=== PATIENT | female | born 1955 | race Caucasian/White ===

== ENCOUNTER 2022-02-14 05:14 | Day surgery (SDC) | payer MEDICAID ==
[2022-02-08 14:12] LABS: PRE OP HEMOGLOBIN 14.2 g/dL (12.0-16.0)
[2022-02-08 14:14] LABS: BASOPHILS % (AUTO) 0.4 % (0-1); EOSINOPHILS # (AUTO) 0.2 X10'3 (0-0.9); EOSINOPHILS % (AUTO) 1.4 % (0-6); LYMPHOCYTES # (AUTO) 3.1 X10'3 (1.1-4.8); MEAN CORPUSCULAR HEMOGLOBIN 28.4 PG (27.0-31.0); MEAN CORPUSCULAR HGB CONC 33.1 g/dL (33.0-36.5); MEAN CORPUSCULAR VOLUME 85.6 FL (78-98); MONOCYTES % (AUTO) 8.8 % (2-12); NEUTROPHILS # (AUTO) 6.8 X10'3 (1.8-7.7); NEUTROPHILS % (AUTO) 61.4 % (42-75); PRE OP HEMATOCRIT 42.8 % (35.0-45.0); PRE OP PLATELET COUNT 308 X10'3 (140-440); RED CELL DISTRIBUTION WIDTH 15.6 % (11.5-14.5)
[2022-02-08 14:31] LABS: ALBUMIN 3.4 G/DL (3.4-5.0); ALBUMIN/GLOBULIN RATIO 0.9 (1.1-1.5); ALKALINE PHOSPHATASE 127 IU/L (46-116); BLOOD UREA NITROGEN 13 MG/DL (7-18); BUN/CREATININE RATIO 15.1 (6.6-38.0); CALCIUM 9.6 MG/DL (8.5-10.1); CHLORIDE 103 MMOL/L (99-107); CREATININE 0.86 MG/DL (0.40-0.90); PRE OP ALT 28 U/L (30-65); PRE OP ANION GAP 5 (8-16); PRE OP AST 20 U/L (10-37); PRE OP BILIRUB, TOTAL 0.4 MG/DL (0.0-1.0); PRE OP GLUCOSE 101 MG/DL (70-104); PRE OP SODIUM 139 MMOL/L (135-145); TOTAL CARBON DIOXIDE 30.7 MMOL/L (24-32); TOTAL PROTEIN 7.4 G/DL (6.4-8.2); eGFR 66 ML/MIN
[2022-02-08 14:41] LABS: PRE OP POTASSIUM 3.1 MMOL/L (3.4-5.1)
[~2022-02-14] VITALS: Ht 160 cm; Wt 129.5 kg
[2022-02-14] VITALS (13 sets, daily range): BP systolic 115–138; BP diastolic 64–116
[~2022-02-14 05:14] MED LIST: AMIT150T PO; ASPI-612 PO; ATOR-2 PO; CHOL400T32 PO; COLRITE PO; EZET10TA48 PO; FAMO20TA8 PO; GABA-530 PO; HYDR-3972 PO; HYDR25TA5 PO; LANS15CA18 PO; METO-411 PO; MONT-40 PO; MULT-1085 PO; POTA8TAB69 PO; ringers solution, lacted 1,000 ML IV SCH
[2022-02-14] MEDS ORDERED: ceFAZolin inj. 3,000 MG in normal saline 100ml IV soln 100 ML IV ONE (05:30)
[2022-02-14] MEDS ORDERED: famotidine 20mg tablet PO ONE (05:30)
[2022-02-14] MEDS ORDERED: DOCUMENT DATE & TIME OF BETA-BLOCKER PO ONE (05:30)
--- NOTE | 2022-02-14 05:30 | NUR ---
PULSES PRESENT. PATIENT EDUCATED ON INCENTIVE SPIROMETER USE AND ITS IMPORTANCE. PATIENT READ BROCHURE GIVEN.
[2022-02-14] MEDS ORDERED: neostigmine methylsulfate 1 MG/ML 10ml vial ONE (09:22)
[2022-02-14] MEDS ORDERED: desflurane 240ml liquid inh. IH ONE (09:22)
[2022-02-14] MEDS ORDERED: LIDOcaine 1% (10mg/ml)w/preservative inj. 20ml MDV ONE (09:22)
[2022-02-14] MEDS ORDERED: glycopyrrolate 0.2mg/ml inj ONE (09:22)
[2022-02-14] MEDS ORDERED: sevoflurane 250ml liquid IH ONE (09:22)
[2022-02-14] MEDS ORDERED: fentaNYL/PF 50MCG/1 ML 2ML syringe ONE (09:32)
[2022-02-14] MEDS ORDERED: MIDAZolam 1 MG/ML 5ML VIAL ONE (09:32)
[2022-02-14] MEDS ORDERED: propofol inj 20 ML IV ONE (09:51)
[2022-02-14] MEDS ORDERED: rocuronium 10mg/ml inj IV ONE (09:52)
[2022-02-14] MEDS ORDERED: ringers solution, lacted 1,000 ML IV SCH (10:55)
[2022-02-14] MEDS ORDERED: ondansetron/PF 4mg/2ml inj IV PRN (10:55)
[2022-02-14] MEDS ORDERED: morphine 2 MG/ML inj. syringe IV PRN (10:55)
[2022-02-14] MEDS ORDERED: proCHLORperazine 10 MG/2 ml inj IV PRN (10:55)
[2022-02-14] MEDS ORDERED: ROPIVAcaine 0.2% (10 MG/5 ML) BOLUS INJECTION INTERSCALE PRN (10:55)
[2022-02-14] MEDS ORDERED: morphine 4 MG/ML inj SYRINge IV PRN (10:55)
[2022-02-14] MEDS ORDERED: meperidine/PF 25mg/ml syringe IV PRN ×3 (10:55)
[2022-02-14] MEDS ORDERED: ROPIVAcaine 0.2%/PF PUMP/bolus 545 ML INTERSCALE SCH (10:55)
[2022-02-14] MEDS ORDERED: dexamethasone sod phosphate 4mg/ml inj. ONE (11:41)
[2022-02-14] MEDS ORDERED: ondansetron/PF 4mg/2ml inj ONE (11:41)
--- NOTE | 2022-02-14 12:07 | NUR ---
Received from OR via [facility], accompanied by Anesthesiologist DR HERRMANN and report given by Anesthesiologist. PT PRESENTS WITH PIV 20G RIGHT HAND, DRESSING ON LEFT SHOULDER CDI WITH ON-Q READY. VSS. Addendum: 02/14/22 at 1223 by Bella Ruiz RN, RN Amended: Links added.
[2022-02-14] MEDS ORDERED: HYDROcodone/acetaminophen 10/325mg tab PO PRN (12:15)
--- NOTE | 2022-02-14 14:17 | NUR ---
ALL DISCHARGE CRITERIA HAS BEEN MET. VSS, PAIN AT A TOLERABLE LEVEL, VOIDING AND ABLE TO SAFELY AMBULATE AND TRANSFER SELF. IV TAKEN OUT WITHOUT ANY COMPLICATIONS. ALL DISCHARGE INSTRUCTIONS COVERED WITH PATIENT AND ALL QUESTIONS ANSWERED. PT ADVISED TO USE INCENTIVE SPIROMETER EVERY HOUR. PT ADVISED TO ICE AND ELEVATE. PT GIVEN ICE PACK TO TAKE HOME. PT WENT HOME WITH 2 SLINGS THAT SHE BROUGHT TO THE HOSPITAL ALONG WITH CLOTHES, CANE AND CELL PHONE. PATIENT TAKEN OUT VIA WHEELCHAIR TO PERSONAL VEHICLE WHERE FAMILY/FRIEND DROVE PATIENT HOME. Addendum: 02/14/22 at 1435 by Bella Ruiz RN, RN Amended: Links added.
== END 2022-02-14 14:17 | disposition home or self-care (01) ==
LOC: UNDOADMIN 05:14 → PAS 05:14 → PAS IN 05:14 → EDSTATUS 07:30 → PAS IN 07:57 → EDSTATUS 08:30 → PAS 14:17
PROVIDERS: ATTEND Orthopaedic Surgery
DX: M19.012 Primary osteoarthritis, left shoulder (principal); M75.42 Impingement syndrome of left shoulder; M75.52 Bursitis of left shoulder; Z79.899 Other long term (current) drug therapy; F41.9 Anxiety disorder, unspecified; G89.4 Chronic pain syndrome; E78.5 Hyperlipidemia, unspecified; F43.10 Post-traumatic stress disorder, unspecified; K21.9 Gastro-esophageal reflux disease without esophagitis; M75.112 Incomplete rotator cuff tear or rupture of left shoulder, not specified as traumatic; E66.01 Morbid (severe) obesity due to excess calories; M17.0 Bilateral primary osteoarthritis of knee; Z98.890 Other specified postprocedural states; Z88.6 Allergy status to analgesic agent; Z88.8 Allergy status to other drugs, medicaments and biological substances; G89.18 Other acute postprocedural pain; Z95.5 Presence of coronary angioplasty implant and graft; I10 Essential (primary) hypertension; Z90.710 Acquired absence of both cervix and uterus
CPT/HCPCS: 29824; 29826; 36415; 64415; 76942; 80053; 82948; 84132; 85025; J0690; J1100; J2250; J2405; J2704; J2710; J2795; J3010; J3490; J7120; Z7506; Z7508; Z7512; A4565; A4615; A4618; A6449; A7000

== ENCOUNTER → 2025-05-06 | Day surgery (SDC) | payer MEDICARE, MEDICAID ==
[2025-05-01 15:01] LABS: MEAN PLATELET VOLUME 8.4 FL (7.4-10.4); RED CELL DISTRIBUTION WIDTH 14.4 % (11.5-14.5)
[2025-05-01 15:11] LABS: CREATININE 0.85 MG/DL (0.40-0.90); TOTAL CARBON DIOXIDE 32.7 MMOL/L (24-32); eGFR 67 ML/MIN
[~2025-05-06] VITALS: Ht 160 cm; Wt 124.9 kg
[~2025-05-06] MED LIST changes: -AMIT150T PO; -ATOR-2 PO; +CHOL20002 PO; -CHOL400T32 PO; -COLRITE PO; +DOCU100C40 PO; -GABA-530 PO; -HYDR25TA5 PO; +HYDROmorphone/PF 0.2 MG/ML SYRINGE IV PRN; +LISI10TA27 PO; -METO-411 PO; -POTA8TAB69 PO; +acetaminophen 1,000mg/100ml IV 100 ML IV PRN; +fentaNYL/PF 50MCG/1 ML 2ML syringe IV PRN; +hydrALAZINE 20mg/ml inj. IV PRN; +labetalol 20mg/4ml (5mg/ml) syringe IV PRN; +ondansetron/PF 4mg/2ml inj IV PRN
[2025-05-06] MEDS: Cefazolin 3 GM/100ML NS IVPB 100 ML IV ONE (05:30)
[2025-05-06] MEDS: ringers solution, lacted 1,000 ML IV SCH (14:05)
[2025-05-06 14:27] VITALS: BP 197/111; PULSE 83; RESP 16; TEMP 97.9; O2SAT 98
[2025-05-06 14:30] VITALS: BP 197/111; PULSE 83; RESP 16; RESP 17; TEMP 97.9; O2SAT 98
[2025-05-06 14:34] VITALS: RESP 16; O2SAT 98
== END | disposition home or self-care (01) ==
LOC: PAS 13:19
PROVIDERS: ATTEND Urology
DX: N20.0 Calculus of kidney (principal); Z53.8 Procedure and treatment not carried out for other reasons; Z88.5 Allergy status to narcotic agent
CPT/HCPCS: 36415; 80053; 82948; 85025; J0690; J7120

== ENCOUNTER 2025-06-24 10:02 | Day surgery (SDC) | payer MEDICARE, MEDICAID ==
[2025-06-24] VITALS (8 sets, daily range): BP systolic 111–153; BP diastolic 64–95; PULSE 77–109; RESP 11–18; TEMP 97.9; O2SAT 94–100
[~2025-06-24] VITALS: Ht 160 cm; Wt 128.3 kg
[2025-06-24] MEDS: Cefazolin 3 GM/100ML NS IVPB 100 ML IV ONE (05:30)
[2025-06-24] MEDS: DOCUMENT DATE & TIME OF BETA-BLOCKER PO ONE (05:30)
[~2025-06-24 10:02] MED LIST changes: -EZET10TA48 PO; +EZET10TA80 PO; +HYDR12.55 PO; +HYDR25TA4; -HYDROmorphone/PF 0.2 MG/ML SYRINGE IV PRN; +METO-411 PO; -acetaminophen 1,000mg/100ml IV 100 ML IV PRN; -fentaNYL/PF 50MCG/1 ML 2ML syringe IV PRN; -hydrALAZINE 20mg/ml inj. IV PRN; -labetalol 20mg/4ml (5mg/ml) syringe IV PRN; -ondansetron/PF 4mg/2ml inj IV PRN; -ringers solution, lacted 1,000 ML IV SCH
[2025-06-24] MEDS: ringers solution, lacted 1,000 ML IV SCH (11:05)
[2025-06-24] MEDS ORDERED: iohexol 300mg/ml 100ml inj. ONE (11:10)
[2025-06-24] MEDS ORDERED: AMIT150T35 PO (11:17)
[2025-06-24 11:18] LABS: MEAN PLATELET VOLUME 8.0 FL (7.4-10.4); RED CELL DISTRIBUTION WIDTH 13.8 % (11.5-14.5)
[2025-06-24 11:26] LABS: CREATININE 0.75 MG/DL (0.40-0.90); TOTAL CARBON DIOXIDE 28.2 MMOL/L (24-32); eCRCL 60 ML/MIN; eGFR 77 ML/MIN
[2025-06-24] MEDS ORDERED: glycopyrrolate 0.2mg/ml inj ONE (11:30)
[2025-06-24] MEDS ORDERED: albuterol 60 PUFF/8GM Inhaler (90mcg/1 puff) IH ONE (11:30)
[2025-06-24] MEDS ORDERED: acetaminophen 1,000mg/100ml IV 100 ML IV PRN (11:45)
[2025-06-24] MEDS ORDERED: fentaNYL/PF 50MCG/1 ML 2ML syringe IV PRN ×2 (11:45)
[2025-06-24] MEDS ORDERED: hydrALAZINE 20mg/ml inj. IV PRN (11:45)
[2025-06-24] MEDS ORDERED: HYDROmorphone inj. 0.5 MG/0.5 ML DISP.SYRIN IV PRN ×2 (11:45)
[2025-06-24] MEDS ORDERED: ringers solution, lacted 1,000 ML IV SCH (11:45)
[2025-06-24] MEDS ORDERED: ondansetron/PF 4mg/2ml inj IV PRN (11:45)
[2025-06-24] MEDS ORDERED: labetalol 20mg/4ml (5mg/ml) syringe IV PRN (11:45)
[2025-06-24] MEDS ORDERED: fentaNYL/PF 50MCG/1 ML 2ML syringe ONE (11:47)
[2025-06-24] MEDS ORDERED: ondansetron/PF 4mg/2ml inj ONE (12:20)
[2025-06-24] MEDS ORDERED: LIDOcaine 2% (20mg/ml) 5ml vial ONE (12:20)
[2025-06-24] MEDS ORDERED: rocuronium 10mg/ml inj IV ONE (12:20)
[2025-06-24] MEDS ORDERED: dexamethasone sod phosphate 4mg/ml inj. ONE (12:20)
[2025-06-24] MEDS ORDERED: propofol inj 20 ML IV ONE ×2 (12:20)
[2025-06-24] MEDS ORDERED: midazolam 1 mg/ML 2ml injection ONE (12:20)
--- NOTE | 2025-06-24 13:10 | OPERATIVE REPORT ---
Operative Report Providers to ~ Date of Procedure: Jun 24, 2025 Pre-Operative Diagnosis: Right renal stone Post-Operative Diagnosis SAME as PRE-Op Procedure Performed Cystoscopy right retrograde pyelogram ureteroscopy laser lithotripsy and vacuum assisted aspiration of stone, right ureteral stent placement Surgeon: MD Claudia Audio Experience Expert None Anesthesiologist: Arvin Mendoza Type of Anesthesia: General Findings: Right renal stone Complications None Prosthetics\Implants used: Right six Colombian by 24 cm double-J ureteral stent Estimated Blood Loss: Minimal Specimen Removed: Right renal stone Description of Procedure: Patient was brought to the operating room given a general anesthetic and placed in dorsal lithotomy position she was prepped and draped in the normal sterile fashion a time-out was performed. A 22 Colombian cystoscope was inserted via urethra there are right ureteral orifice was identified intubated with a five Colombian open-ended catheter which point a retrograde pyelograms performed this showed a normal shape and taper there were no stones identified except for the one up in the kidney and no hydronephrosis. Two wires were passed up to the kidney at which point ureteral access sheath was advanced the celiac scope was advanced all the way up into the kidney there was some tightness in the proximal ureter identified the stone dusted it completely using a thallium laser fiber following which I was able to completely remove all of the fragments using vacuum assisted aspiration. Once the aspiration was completed there was no further stone burden in the kidney this was steerable aspiration. The entire kidney was carefully examined there was no further stone burden following which the scope was removed visualizing the ureter on the way out there was a small tear in the proximal ureter which I decided to leave a stent in as a result. A six Colombian by 24 cm double-J ureteral stent was advanced over the wire into the right kidney the wire was removed there was good coils in the proximal portion of the stent spot fluoroscopy and good closely on distal portion the stent and direct visualization the bladder was drained and the cystoscope was removed all tools were removed this marked the end of the procedure. CHAKA WANG MD Jun 24, 2025 13:10
== END 2025-06-24 13:44 | disposition home or self-care (01) ==
LOC: PAS 10:02
PROVIDERS: ATTEND Urology
DX: N20.0 Calculus of kidney (principal); I10 Essential (primary) hypertension; K21.9 Gastro-esophageal reflux disease without esophagitis; E66.9 Obesity, unspecified; F43.10 Post-traumatic stress disorder, unspecified; M19.90 Unspecified osteoarthritis, unspecified site; Z79.899 Other long term (current) drug therapy; Z90.710 Acquired absence of both cervix and uterus; Z98.890 Other specified postprocedural states; Z68.43 Body mass index [BMI] 50.0-59.9, adult
CPT/HCPCS: 36415; 52356; 74420; 80053; 82948; 85025; A4618; A7000; C1747; C1769; C2617; J0690; J1100; J2003; J2250; J2405; J2704; J2710; J3010; J3490; J7030; J7120; Q9967; Z7506; Z7508; Z7512; Z7610; 76000